=== PATIENT | male | born 1970 | race Caucasian/White ===

== ENCOUNTER → 2017-08-06 | Outpatient (CLI) | payer OTHER ==
--- NOTE | 2017-08-06 14:57 | RAD ---
HISTORY: Neck pain Study: AP and lateral cervical spine, odontoid cervical spine Comparison: None Findings: The prevertebral soft tissues are normal. The alignment is normal. The vertebral bodies are of averag e height. The patient is status post C4-5 anterior interbody fusion with hardware and a disc spacer p resent. Fusion does not appear to be as yet complete. The remainder the vertebral bodies are of avera ge height. The remainder the disc spaces are preserved. The posterior elements are intact. The joints are normal. IMPRESSION: Postoperative changes as above No other significant abnormality identified Reported By:
== END ==
LOC: RAD 11:52
PROVIDERS: ATTEND Neurological Surgery
DX: M47.12 Other spondylosis with myelopathy, cervical region (principal)
CPT/HCPCS: 72040

== ENCOUNTER → 2018-01-12 | Outpatient (CLI) | payer OTHER ==
--- NOTE | 2018-01-12 14:02 | MRI ---
HISTORY: Neck pain, spondylosis with myelopathy Study: MRI cervical spine with and without contrast Comparison: Cervical radiographs performed on 08/06/2017 Technique: Multisequence, multiplanar imaging of the cervical spine was performed both before and aft er the administration of 15 cc Omniscan. Findings: Imaging of the cervical spine demonstrates the patient to be status post C4-C5 anterior cervical fusi on. Vertebral alignment is normal. There is no spondylolisthesis. No suspicious bone marrow edema is identified. There is no abnormal enhancement within the cervical spine. No abnormal enhancement is id entified within the cervical cord. 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 Evaluation of the pre and paravertebral soft tissues is unremarkable. The visualized posterior fossa is grossly unremarkable as well. C2 -- C3: At the C2-C3 level there is mild posterior ridging without significant canal stenosis or ne uroforaminal compromise. C3 -- C4: At the C3-C4 level there is mild broad-based ridging and uncovertebral spurring, resulting in [id number] neuroforaminal compromise on the right and minimal neuroforaminal compromise on t he left but no significant canal stenosis. C4 -- C5: At the C4-C5 level there is a broad-based disc osteophyte complex as well as uncovertebral spurring and facet hypertrophy, resulting in moderate canal stenosis with flattening of the cervical cord as well as moderate bilateral neuroforaminal compromise, right greater than left. C5 -- C6: At the C5-C6 level there is a broad-based disc osteophyte complex with a central predominan ce as well as uncovertebral spurring, resulting in moderate neuroforaminal compromise on the right an d minimal neuroforaminal compromise on the left as well as mild canal stenosis with contouring of the ventral cervical cord. C6 -- C7: At the C6-C7 level there is a small central disc osteophyte or small central disc protrusio n superimposed upon a broad-based disc osteophyte complex as well as uncovertebral spurring, resultin g in [id number] neuroforaminal compromise on the right and minimal neuroforaminal compromise on the left but no significant canal stenosis. Mild contouring of the ventral cervical cord is noted. C7 -- T1: At the C7-T1 level there is mild left lateral recess disc ridging without significant canal stenosis or neuroforaminal compromise. IMPRESSION: 1. Multilevel degenerative disc disease and mild facet arthropathy as detailed above, most significan t at the C4-C5 level, there is moderate canal stenosis with flattening of the ventral cervical cord a s well as moderate bilateral neuroforaminal compromise, right greater than left. T2/STIR hyperintense signal within the cervical cord at this level and at the C5 level likely reflects spondylitic myelom alacia. 2. Status post C4-C5 anterior cervical fusion. No abnormal enhancement is identified within the cervi tsering spine. Reported By:
--- NOTE | 2018-01-12 14:21 | MRI ---
MRI left shoulder without contrast Indication: Chronic left shoulder pain Technique: Multisequence, multiplanar MR images of the left shoulder were obtained without IV contras t. Comparison: Cervical spine MRI from same day Findings: No acute fracture or malalignment is identified. There is mild supraspinatus and infraspinatus tendinosis without discrete tear identified. The subsca pularis and teres minor are normal. There is mild symmetric generalized atrophy of the rotator cuff m usculature. There is mild AC joint DJD without significant encroachment upon the supraspinatus. The type 2 acromi on is unremarkable. There is no significant fluid within the subdeltoid/subacromial bursa. There is m ild chondrosis of the glenohumeral joint with small subchondral cyst formation within the posterior g lenoid. No large full-thickness cartilage defects or appreciable effusion identified. There is a tear of the anterior superior labrum which propagates into the posterior superior labrum. There is an associated paralabral cyst arising from the superior labrum at 12 o'clock with measures a pproximately 1.1 x 0.6 cm (axial PD image 8, series 501). There is mild tenosynovitis of the long hea d biceps tendon, which is otherwise intact and appropriately positioned within the bicipital groove. Impression: 1. SLAP tear with 1.1 cm associated paralabral cyst arising from the superior labrum at 12 o'clock. 2. Mild supraspinatus and infraspinatus tendinosis. 3. Mild generalized but symmetric fatty atrophy of the rotator cuff musculature, likely related to ch ronic degenerative changes of the cervical spine (see MRI cervical spine from same day). 4. Mild AC and glenohumeral joint DJD. 5. Tenosynovitis of the long head biceps tendon. Reported By:
== END | disposition home or self-care (01) | DRG 556 ==
LOC: RAD 10:00
PROVIDERS: ATTEND Neurological Surgery
DX: M25.512 Pain in left shoulder (principal); M47.12 Other spondylosis with myelopathy, cervical region; S43.432A Superior glenoid labrum lesion of left shoulder, initial encounter; X58.XXXA Exposure to other specified factors, initial encounter; M19.012 Primary osteoarthritis, left shoulder; M65.812 Other synovitis and tenosynovitis, left shoulder; M50.321 Other cervical disc degeneration at C4-C5 level
CPT/HCPCS: 72156; 73221